=== PATIENT | female | born 2000 | race Caucasian/White ===

== ENCOUNTER 2022-07-16 01:02 | Emergency (ER) | payer MEDICAID ==
[2022-07-16] MEDS ORDERED: Famotidine 20 MG/2 ML SDV IVPUSH ONE (01:09)
[2022-07-16] MEDS ORDERED: diphenhydrAMINE 50 MG/ML SDV IVPUSH ONE (01:09)
[2022-07-16] MEDS ORDERED: methylPREDNISolone Sodium Succinate 125 MG/2 ML SDV IVPUSH ONE (01:09)
[2022-07-16] MEDS ORDERED: Ondansetron 4 MG/2 ML SDV IVPUSH ONE (01:10)
[2022-07-16 01:58] LABS: CORONAVIRUS COVID-19 NAA NEGATIVE (NEGATIVE); INFLUENZA A NAA NEGATIVE (NEGATIVE); INFLUENZA B NAA NEGATIVE (NEGATIVE); RESPIRATORY SYNCYTIAL VIR NAA NEGATIVE (NEGATIVE)
== END 2022-07-16 05:00 | disposition home or self-care (01) ==
LOC: MW.ED 01:02
DX: T78.40XA Allergy, unspecified, initial encounter (principal); Z20.822 Contact with and (suspected) exposure to COVID-19
CPT/HCPCS: 0241U; 96374; 96375; 99283; J1200; J2405; J2930; J3490